=== PATIENT | female | born 1965 | race Caucasian/White ===

== ENCOUNTER → 2016-04-09 | Outpatient (CLI) | payer BC, OTHER ==
[~2016-04-09] MED LIST: MOBI15TA PO
--- NOTE | 2016-04-15 23:43 | ECWPNPC ---
PATIENT NAME: BARBI W[place] : 1965 GENDER: FEMALE VISIT DATE: 04/09/2016 DISCHARGE DATE: 04/09/16 1058 VISIT LOCKED DATE TIME: PHYSICIAN: JAMIE MALDONADO RESOURCE: JAMIE MALDONADO REASON FOR APPOINTMENT 1. BACK HISTORY OF PRESENT ILLNESS HISTORY OF PRESENT ILLNESS: BARBI IS A 51 Y/O FEMALE LAST SEEN HERE IN .PREVIOUS PAIN CLINIC PROVIDER WAS FOLLOWING HER Q6MOS TO 1 YEAR.HX OF CHRONIC NECK AND GENERALIZED BACK PAIN .HAD MRI OF CERVICAL AND THORACIC SPINE ORDERED AT HER LAST VISIT AND DONE ON 04-21-14.MISSED APT FOR THIS TO BE REVIEWED.STUDIES ARE REVIEWED WITH PATIENT TODAY.CERVICAL IS SHOWING DEGENERATIVE DISK DISEASE,DIFFUSE DISK BULGING,SPONDYLOSIS,MILD SPINAL CANAL STENOSIS C4-5 AND C5-6.MRI THORACIC SPINE SHOWING MILD POSTERIOR DISK PROTRUSIONS AT T6-7/T7-8.CURRENTLY USING MOBIC 15MG DAILY AND FINDS IT HELPFUL AT REDUCING PAIN AND KEEPING HER COMFORTABLE.DENIES SIDE EFFECTS.RATING PAIN VAS 3/10. FALL RISK SCREENING: SCREENING :NO FALLS IN THE PAST YEAR CURRENT MEDICATIONS TAKING MOBIC 15 MG TABLET 1 TABLET ORALLY ONCE A DAY TAKING TYLENOL 1000 MG 1 TAB ORAL FOUR TIMES DAILY NEEDED MEDICATION LIST REVIEWED AND RECONCILED WITH THE PATIENT PAST MEDICAL HISTORY FIBROID UTERUS RENAL CALCULI ALLERGIES CAFFEINE CIPRO: UPSET STOMACH SURGICAL HISTORY REMOVAL OF CHIPPED BONE RIGHT KNEE 1979 LEFT BREAST BIOPSY 2004 CHOLECYSTECTOMY 2009 FAMILY HISTORY FATHER: ALIVE 70 YRS, DIAGNOSED WITH HYPERTENSION, HEART DISEASE MOTHER: ALIVE, DIAGNOSED WITH HYPERTENSION, HEART DISEASE DAUGHTER(S): ALIVE 1DAUGHTER(S) - HEALTHY. SOCIAL HISTORY TOBACCO USE ARE YOU A:NONSMOKER ALCOHOL SCREENING DID YOU HAVE A DRINK CONTAINING ALCOHOL IN THE PAST YEAR?YES HOW OFTEN DID YOU HAVE A DRINK CONTAINING ALCOHOL IN THE PAST YEAR?TWO TO THREE TIMES PER WEEK (3 POINTS) HOW MANY DRINKS DID YOU HAVE ON A TYPICAL DAY WHEN YOU WERE DRINKING IN THE PAST YEAR?10 OR MORE (4 POINTS) HOW OFTEN DID YOU HAVE SIX OR MORE DRINKS ON ONE OCCASION IN THE PAST YEAR?NEVER (0 POINTS) POINTS7 INTERPRETATIONPOSITIVE RECREATIONAL DRUG USE: NEVER . CAFFEINE: YES CAFFEINE USE? 1-2 CUPS COFFEE/DAY OCC. 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 DIET: REGULAR. EXERCISE: NO REGULAR EXERCISE. MARITAL STATUS: . OTHERS AT HOME: SPOUSE, GRANDCHILD. EDUCATION: GRADUATED WITH AT, HIGH SCHOOL, COLLEGE, . LEARNING BARRIERS / SPECIAL NEEDS VISION IMPAIRED?YES GLASSES LEARNING PREFERENCES?YES :DEMONSTRATION/VERBAL INSTRUCTION NEW PATIENT PAIN DIARY TODAY'S VISITNOTES FROM 0-10, WHAT LEVEL IS YOUR PAIN TODAY?0 PAIN CLINIC PFS, CLERGY, PUBLIC HEALTH REFERRALS PFS REFERRAL NEEDED?NO CLERGY REFERRAL NEEDED?NO PUBLIC HEALTH REFERRAL NEEDED?NO WAS THE PROVIDER NOTIFIED OF ANY PERTINENT INFO?NO PFS REFERRAL NEEDED?NO CLERGY REFERRAL NEEDED?NO PUBLIC HEALTH REFERRAL NEEDED?NO WAS THE PROVIDER NOTIFIED OF ANY PERTINENT INFO?NO HOSPITALIZATION/MAJOR DIAGNOSTIC PROCEDURE SEVERE ABD PAIN PANCREATITIS REVIEW OF SYSTEMS CONSTITUTIONAL: ANY CHANGE IN YOUR MEDICAL CONDITION? NO . RECENT ILLNESS DENIES . CHILLS NO . FEVER NO . WEIGHT LOSS DENIES . INFECTION: DO YOU HAVE NEW INFECTIONS? NO . DO YOU HAVE HISTORY OF MRSA? NO . MUSCULOSKELETAL: ANY NEW PATTERNS OF PAIN OR NUMBNESS? YES, PAIN DOWN RIGHT AND LEFT ARM X 1 WEEK . GASTROENTEROLOGY: ANY NEW CHANGE IN BOWEL CONTROL? NO . GENITOURINARY: ANY NEW CHANGE IN BLADDER CONTROL? NO . IS THERE A CHANCE YOU COULD BE ? NO . HEMATOLOGY/LYMPH: DO YOU TAKE ANY BLOOD THINNERS? (FOR EXAMPLE- COUMADIN, PLAVIX, AGGRENOX, PLATEL, PRADAXA, OR XARELTO) NO . WHEN WAS YOUR LAST DOSE? DATE: TIME: . NEUROLOGY: HAVE YOU FALLEN IN THE PAST 6 MONTHS? NO . ANY NEW EXTREMITY NUMBNESS OR WEAKNESS? NO . CARDIOLOGY: DO YOU HAVE A PACEMAKER OR DEFIBRILLATOR? NO . CHEST PAIN DENIES . SHORTNESS OF BREATH DENIES . RESPIRATORY: HAVE YOU BEEN SICK IN THE PAST WEEK? NO . FEVER NO . FLU LIKE SYMPTOMS? NO . COUGH NO, DENIES . SHORTNESS OF BREATH DENIES . INTEGUMENTARY: DO YOU HAVE ANY RASHES OR OPEN SORES? NO . ALLERGIC/IMMUNO: ARE YOU ALLERGIC TO SHELLFISH OR IV DYE? NO . ANY NEW ALLERGIES? NO . PSYCHIATRIC: DO YOU HAVE THOUGHTS OF HURTING YOURSELF OR SOMEONE ELSE? NO . ARE YOU ABUSED, NEGLECTED, OR IN AN UNSAFE ENVIRONMENT? NO . ENDOCRINOLOGY: ARE YOU DIABETIC? NO . OTHER: DO YOU NEED ANY PRESCRIPTIONS? YES, MOBIC . IF YES, PLEASE LIST: ____ . ANY NEW PROBLEMS WITH YOUR MEDICATIONS? NO . WHEN DID YOU LAST EAT? ____ . WHEN DID YOU LAST DRINK? ____ . WHAT DID YOU LAST DRINK? ____ . NAME OF PERSON DRIVING YOU HOME? ____ . DO YOU HAVE ANY OTHER QUESTIONS OR CONCERNS NO . REVIEWED BY: PROVIDER: JAMIE ALMEIDA . VITAL SIGNS WT 170 LBS, HT 70 IN, BMI 24.39 INDEX, BP 129/80 MM HG, HR 68 /MIN, RR 16 /MIN, TEMP 98.4 F, OXYGEN SAT % 95%, NA INITIALS SC 09:43, REVIEWED BY: MLF. EXAMINATION GENERAL EXAMINATION: LUNGS:LUNG SOUNDS ARE CLEAR. HEART:HEART RATE REGULAR. MUSCULOSKELETAL:*, MUSCLE STRENGTH TESTING 5/5 BILATERAL. UPPER AND LOWER EXTREMITIES. PALPATION: NEGATIVE FOR PAIN OVER L/S ,THORACI OR CERVICAL SPINE. NEGATIVE FOR PAIN OVER L/S,THORACIC OR CERVICAL PARASPINALS. DIAGNOSTIC:MRI THORACIC AND CERVICAL SPINE REVIEWED.. ASSESSMENTS CERVICALGIA - M54.2 (PRIMARY) PAIN IN THORACIC SPINE - M54.6 TREATMENT CERVICALGIA CONTINUE MOBIC TABLET, 15 MG, 1 TABLET, ORALLY, ONCE A DAY, 30 DAY(S), 30 TABLET, REFILLS 5 REFERRAL TO:PHYSICAL THERAPIST REASON:CERVICALGIA W RIGHT ARM RADICULOPATHY,MYOFASCIAL PAIN PROCEDURE CODES FA211 ESTABILISHED PATIENT [facility] CHARGE FOLLOW UP 2 MONTHS ELECTRONICALLY SIGNED BY JUAN PABLO COLLINS ON 04/15/2016 AT 10:56 AM EST DISCLAIMER : THIS IS A VISIT SUMMARY EXTRACTED FROM THE [employer] CHART. IT IS NOT A COPY OF THE [employer] PROGRESS NOTE. CAT[place]
== END ==
LOC: M PAIN 09:40
PROVIDERS: ATTEND Nurse Practitioner Family
DX: M54.2 Cervicalgia (principal); M54.6 Pain in thoracic spine; Z79.899 Other long term (current) drug therapy; Z88.1 Allergy status to other antibiotic agents; Z91.018 Allergy to other foods

== ENCOUNTER 2016-08-08 06:09 | Day surgery (SDC) | payer BC, OTHER ==
[2016-08-08] VITALS (9 sets, daily range): BP systolic 109–125; BP diastolic 58–75
[~2016-08-08] VITALS: Ht 175.3 cm; Wt 77.1 kg
[~2016-08-08 06:09] MED LIST changes: +LR 1,000 ML IV ONE; +[UNRECOGNIZED DRUG - OTHER]
[2016-08-08] MEDS ORDERED: ceFAZolin 2 GM/D5W 50 ML IV BAG (J0690) As Ordered ONE (06:23)
[2016-08-08 06:49] LABS: MEAN CORPUSCULAR HEMOGLOBIN 30.3 pg (27.0-33.0); MEAN CORPUSCULAR HGB CONC 33.5 g/dl (32.0-36.5); MEAN CORPUSCULAR VOLUME 90.3 fl (80.0-96.0); RED CELL DISTRIBUTION WIDTH 11.9 % (11.5-14.5); WHITE BLOOD COUNT 5.5 K/mm3 (4.0-10.0)
[2016-08-08] MEDS ORDERED: ROCURONIUM BROMIDE 50 MG/5 ML VIAL As Ordered ONE (07:22)
[2016-08-08] MEDS ORDERED: PROPOFOL 200 MG/20 ML VIAL As Ordered ONE (07:22)
[2016-08-08] MEDS ORDERED: LIDOCAINE 2% INJ 100 MG/5 ML SDV (FOR ANES.) As Ordered ONE (07:22)
[2016-08-08] MEDS ORDERED: MIDAZOLAM INJ 2 MG/2 ML VIAL (J2250) As Ordered ONE (07:23)
[2016-08-08] MEDS ORDERED: fentaNYL 250 MCG/5 ML INJECTION (J3010) As Ordered ONE (07:23)
[2016-08-08 07:28] LABS: CONTROL LINE UCG INT CTR LINE PRESENT
[2016-08-08] MEDS ORDERED: dexameTHASONE 4 MG/ML 1ML VIAL (J1100) As Ordered ONE (08:05)
[2016-08-08] MEDS ORDERED: ONDANSETRON 4MG/2ML VIAL (J2405) As Ordered ONE (08:05)
[2016-08-08] MEDS ORDERED: HYDROmorphone HCL 2 MG/ML 1ML VIAL (J1170) As Ordered ONE (08:17)
[2016-08-08] MEDS ORDERED: KETOROLAC 60 MG/2 ML VIAL (J1885) As Ordered ONE (08:25)
[2016-08-08] MEDS ORDERED: GLYCOPYRROLATE INJ 0.2 MG/ML 2 ML VIAL As Ordered ONE ×2 (08:25→10:00)
[2016-08-08] MEDS ORDERED: NEOSTIGMINE 1MG/ML 5 ML SYRINGE (J2710) As Ordered ONE (08:25)
[2016-08-08] MEDS ORDERED: MORPHINE PCA 1MG/ML 100ML CADD As Ordered ONE (09:43)
[2016-08-08] MEDS ORDERED: MEPERIDINE INJ 25 MG/ML VIAL (J2175) As Ordered ONE (10:00)
[2016-08-08] MEDS: MEPERIDINE INJ 25 MG/ML VIAL (J2175) IV PRN ×2 (10:07→10:12)
[2016-08-08] MEDS ORDERED: METOCLOPRAMIDE INJ 10MG/2ML VIAL (J2765) IV PRN (10:15)
[2016-08-08] MEDS ORDERED: fentaNYL 100 MCG/2 ML INJECTION (J3010) IV PRN (10:15)
[2016-08-08] MEDS ORDERED: PERCOCET 5MG/325MG TAB PO PRN (10:15)
[2016-08-08] MEDS ORDERED: LR 1,000 ML IV SCH (10:15)
[2016-08-08] MEDS ORDERED: ONDANSETRON 4MG/2ML VIAL (J2405) IV PRN (10:15)
[2016-08-08] MEDS ORDERED: MORPHINE PCA 1MG/ML 100ML CADD IV PRN (10:45)
[2016-08-08] MEDS ORDERED: diphenhydrAMINE INJ 50MG/ML VIAL (J1200) IV PRN (10:45)
[2016-08-08] MEDS ORDERED: EPIDURAL/PCA KEYS XX PRN (10:45)
[2016-08-08] MEDS ORDERED: NALBUPHINE HCL 10 MG/ML AMP (J2300) IV PRN (10:45)
[2016-08-08] MEDS ORDERED: NALOXONE INJ 0.4 MG/1 ML VIAL (J2310) IV PRN (10:45)
[2016-08-08] MEDS: LR 1,000 ML IV SCH ×3 (11:20→23:12)
--- NOTE | 2016-08-08 14:32 | RO ---
DATE OF PROCEDURE: 08/08/2016 PREPROCEDURE DIAGNOSES: Menorrhagia, dysmenorrhea and fibroid. POSTPROCEDURE DIAGNOSES: Menorrhagia, dysmenorrhea and fibroid, endometriosis. PROCEDURE: SURGEON: Dr. Iva Burton PERSONAL LINES UNDERWRITER: None. ANESTHESIA: General endotracheal anesthesia. DESCRIPTION OF PROCEDURE: Sandy was brought to the operating room where sufficient general endotracheal anesthesia was induced and she was prepped, draped and positioned in the usual sterile fashion with a weighted speculum placed, the bladder emptied, and the uterine manipulator placed. Attention was then turned to the abdomen. A transverse semilunar incision was made below the umbilicus. Sharp and blunt dissection were continued to the subcutaneous tissues to the level of the rectus fascia. This was transversely incised, secured with 0 Vicryl retention sutures and the peritoneum was then entered under direct visualization in an open laparoscopic technique. Using direct visualization, the Ramirez cannula was then also placed and secured in place with the 0 Vicryl retention sutures. CO2 insufflation was then begun. After adequate CO2 insufflation, the peritoneal cavity was visualized. There were normal shiny peritoneal surfaces throughout. There were no excrescence, ascites or exudate. There were some minor adhesions of the epiploicae of the descending colon along the left lateral side wall as is very commonly seen but no significant other intestinal findings in the right pelvis. There was what appeared to be a very obvious endometriotic implant which certainly is consistent with the patient's complaints of pain. We then, using the operative port in the scope, placed a 45 Enseal and used this to carefully cauterize and transect the infundibulopelvic ligaments bilaterally. Of course, using the uterine manipulator for traction on the tissues to support them away from bowel, and of course, using Trendelenburg as needed. After having freed the infundibulopelvic ligaments bilaterally, the round ligaments were similarly cauterized and transected and the broad ligament dissection continued. We then used cold knife scissors to dissect across the anterior aspect of the bladder using the Lei with the ability to back fill to delineate bladder location. Having freed the bladder flap, the round ligaments and the infundibulopelvic ligaments bilaterally, we then went below. From the vaginal approach, the uterine manipulator was removed. Single tooth tenacula were used to place traction upon the cervix and a circumferential incision was made around the base of the cervix using the scalpel. The cardinal ligaments were then isolated, clamped, transected and ligated using the FerrariNicolas clamps, which were used throughout this portion of the case and 0 Vicryl suture, which was similarly used throughout this portion of the case. We then continued our dissection opening the posterior reflection of the peritoneum, which was readily clarified with the distention from the CO2. Then clamped, transected, and ligated the uterosacral ligaments which were held for later re-attachment to the vaginal cuff. We then dissected up to our previous anterior dissection that we had already done laparoscopically and progressively clamped, transected and ligated the uterine vasculature along the lateral aspect of the uterus. The uterus was then delivered with the attached ovaries and tubes and weighed 108 grams. Each pedicle was carefully visualized. There was slight ooze on the patient's right side, which was oversewn and was in good control. With good hemostasis at the pedicles confirmed angle stitches of 0 Vicryl were taken in the vaginal cuff and the uterosacral ligaments re-secured to the cuff and it was closed in the usual fashion with running lock stitch of 0 Vicryl. Good approximation and hemostasis achieved. We then removed the abdominal port at the umbilicus and closed that wound using the 0 Vicryl retention sutures for the fascia and #3-0 Vicryl in an subcuticular stitch for the skin. A dry sterile dressing was then applied. Estimated blood loss for the procedure about 50 mL. Fluid replacement was Crystalloid. Complications: None. CONDITION AND DISPOSITION: Sandy tolerated the procedure well and was recovering in the recovery room in good condition.
[2016-08-08] MEDS: IBUPROFEN 600 MG TAB PO PRN (23:31)
[2016-08-09] VITALS: BP 111/58
[2016-08-09 04:00] VITALS: BP 104/53
[2016-08-09] MEDS ORDERED: NORCO, ANEXSIA 5/325MG TABLET (HYDROcodone/ACETAMINOPHEN) PO PRN (06:00)
[2016-08-09] MEDS: IBUPROFEN 600 MG TAB PO PRN (06:22)
[2016-08-09 06:47] LABS: MEAN CORPUSCULAR HEMOGLOBIN 30.8 pg (27.0-33.0); MEAN CORPUSCULAR HGB CONC 33.1 g/dl (32.0-36.5); MEAN CORPUSCULAR VOLUME 93.2 fl (80.0-96.0); WHITE BLOOD COUNT 10.8 K/mm3 (4.0-10.0)
[2016-08-09 08:00] VITALS: BP 118/66
[2016-08-09] MEDS ORDERED: LORT5TAB PO (08:36)
[2016-08-09] MEDS ORDERED: ADVI200C5 PO (08:36)
== END 2016-08-09 10:15 | disposition home or self-care (01) ==
LOC: M SDC 06:09 → M PED 10:34 → M ED INP 14:27 → M PED 14:29 → M SDC 08-09 10:15
PROVIDERS: ATTEND Obstetrics & Gynecology
DX: N92.0 Excessive and frequent menstruation with regular cycle (principal); N94.6 Dysmenorrhea, unspecified; D25.1 Intramural leiomyoma of uterus; N80.9 Endometriosis, unspecified; M19.90 Unspecified osteoarthritis, unspecified site; Z88.1 Allergy status to other antibiotic agents
CPT/HCPCS: 36415; 58571; 84703; 85027; 86850; 86900; 86901; 88307; J0690; J1100; J1170; J1885; J2175; J2250; J2405; J2710; J3010

== ENCOUNTER → 2017-03-05 | Outpatient (CLI) | payer BC, OTHER ==
[~2017-03-05] MED LIST changes: +ADVI200C5 PO; +LORT5TAB PO; -LR 1,000 ML IV ONE
--- NOTE | 2017-03-05 16:13 | REP ---
CT IAC WITHOUT CONTRAST: HISTORY: Conductive hearing loss. The internal auditory canals, cochlea, vestibules and semicircular canals are normal in appearance. The ossicles are normal in configuration and position. There are areas of dehiscence in the left tegmen. The scutum and right tegmen are intact. Minimal mucosal thickening is present in the mastoid air cells and right middle ear cavity. The left middle ear cavity is clear. The nasopharynx is normal in appearance. The visualized sinuses are clear. IMPRESSION: There is minimal mucosal thickening in the mastoid air cells and right middle ear cavity. Signed by Hiren Vega MD 03/05/2017 04:17 P
== END ==
LOC: M RAD 14:44
PROVIDERS: ATTEND Otolaryngology
DX: H90.0 Conductive hearing loss, bilateral (principal)

== ENCOUNTER → 2017-07-13 | Outpatient (CLI) | payer BC, OTHER ==
[2017-07-13 10:33] LABS: BASO # 0.1 10^3/uL (0.0-0.2); BASO % 0.7 % (0.0-1.0); EOS # 0.1 10^3/uL (0.0-0.50); EOS % 1.9 % (0.0-3.0); HEMATOCRIT 42.8 % (36.0-47.0); HEMOGLOBIN 14.6 g/dl (12.0-15.5); IMMATURE GRANULOCYTE % 0.3 % (0-3.0); LYMPH # 2.6 10^3/uL (1.5-4.5); MEAN CORPUSCULAR HEMOGLOBIN 30.3 pg (27.0-33.0); MEAN CORPUSCULAR HGB CONC 34.1 g/dl (32.0-36.5); MEAN CORPUSCULAR VOLUME 88.8 fl (80.0-96.0); MONO # 0.7 10^3/uL (0.0-0.8); MONO % 9.1 % (0.0-5.0); PLATELET COUNT, AUTOMATED 284 10^3/uL (150-450); RED BLOOD COUNT 4.82 10^6/uL (4.00-5.40); RED CELL DISTRIBUTION WIDTH 12.2 % (11.5-14.5); WHITE BLOOD COUNT 7.6 10^3/uL (4.0-10.0)
[2017-07-13 10:48] LABS: ALBUMIN 4.3 GM/DL (3.2-5.2); ALBUMIN/GLOBULIN RATIO 1.16 (1.00-1.93); ALKALINE PHOSPHATASE 108 U/L (45-117); ALT/SGPT 182 U/L (12-78); AMYLASE 44 U/L (25-115); ANION GAP 5 MEQ/L (8-16); AST/SGOT 90 U/L (7-37); BILIRUBIN,TOTAL 1.4 MG/DL (0.2-1.0); BLOOD UREA NITROGEN 13 MG/DL (7-18); CALCIUM LEVEL 9.6 MG/DL (8.5-10.1); CARBON DIOXIDE LEVEL 30 MEQ/L (21-32); CHLORIDE LEVEL 105 MEQ/L (98-107); CREATININE FOR GFR 0.91 MG/DL (0.55-1.30); GLOMERULAR FILTRATION RATE > 60.0 (>51); GLUCOSE, FASTING 93 MG/DL (70-100); LIPASE 145 U/L (73-393); POTASSIUM SERUM 4.4 MEQ/L (3.5-5.1); SODIUM LEVEL 140 MEQ/L (136-145)
== END ==
LOC: M WUC 09:17
DX: R10.31 Right lower quadrant pain (principal); R93.5 Abnormal findings on diagnostic imaging of other abdominal regions, including retroperitoneum
CPT/HCPCS: 82150

== ENCOUNTER → 2019-09-07 | Outpatient (CLI) | payer BC, OTHER ==
[2019-09-07 13:47] LABS: C REACTIVE PROTEIN QUANTITATIV < 0.30 MG/DL (0.00-0.30); FERRITIN 112 NG/ML (8-252); IRON (FE) 96 UG/DL (50-170); RHEUMATOID FACTOR QUANT < 10.0 IU/ML (<15.0); URIC ACID 4.1 MG/DL (2.6-6.0)
--- NOTE | 2019-09-07 17:56 | REPPI ---
Clinical: Inflammatory polyarthritis Technique: AP, lateral, bilateral oblique and sunrise views of the right and left knee . Findings: Left knee demonstrates generalized age-related changes with mildly increased sclerosis involving the tibial plateau and posterior patellar margin. No further significant obvious arthritic or inflammatory arthritic changes noted. No acute fracture or dislocation. No obvious effusion. Right knee demonstrates mild osteoarthritic degenerative changes including early spurring along the tibial plateau and patellar margin, increased sclerosis of the tibial plateau and posterior patellar contour with patellofemoral joint space narrowing. Element of chondrocalcinosis involving the medial joint compartment cannot be excluded. No acute fracture or dislocation. No obvious effusion. Impression: 1. Mild osteoarthritic degenerative changes of the right knee. 2. Left knee demonstrates generalized age-related changes. Electronically Signed by Familia Jackson MD 09/07/2019 05:47 P
--- NOTE | 2019-09-07 18:18 | REPPI ---
Clinical: Inflammatory arthritis. Technique: AP, lateral, bilateral oblique views of the right and left hand. Findings: Examination demonstrates mild subchondral sclerosis and minimal relatively symmetric arthritic degenerative changes primarily involving the distal interphalangeal joints. Small fractured osteophyte of the right and left second distal phalanges noted. Increase sclerosis along the radial surface with decreased radiocarpal joint space also identified bilaterally. Impression: Mild arthritic degenerative changes. Electronically Signed by Familia Jackson MD 09/07/2019 06:10 P
[2019-09-08 09:58] LABS: HEPATITIS C VIRUS ABY INDEX 0.2 INDEX (<0.8)
[2019-09-13 14:12] LABS: CYCLIC CITRULLINATED PEPTIDE 5 units (0-19); HEPATITIS B CORE ANTIBODY IGG Negative (Negative); HLA-B27 Negative (.)
== END ==
LOC: M PLAIMG 11:18
PROVIDERS: ATTEND Internal Medicine
DX: M17.11 Unilateral primary osteoarthritis, right knee (principal); M19.041 Primary osteoarthritis, right hand; M19.042 Primary osteoarthritis, left hand; M06.4 Inflammatory polyarthropathy